=== PATIENT | female | born 1970 | race African-American/Black ===

== ENCOUNTER 2020-03-06 00:28 | Inpatient (IN) ==
[2020-03-06] MEDS ORDERED: SODIUM CHLORIDE 0.9% 1,000 ML IV STA (00:46)
[2020-03-06] MEDS ORDERED: PANTOPRAZOLE 40 MG VIAL IV STA (00:47)
[2020-03-06] MEDS ORDERED: ONDANSETRON 4 MG/2 ML VIAL IV STA (00:47)
[2020-03-06 01:13] LABS: ABG Base Excess -5.2 MMOL/L (-2.5-2.5); ABG HCO3 20.1 MMOL/L (20-26); ABG Oxygen Saturation 97.5 % (95-100); ABG PCO2 32.1 MM HG (35-48); ABG PH 7.381 (7.35-7.45); ABG PO2 95.3 MM HG (80-95); Allen Test Positive; Pt O2 Delivery Device Room Air
[2020-03-06 01:19] LABS: Alanine Aminotransferase 11 U/L (13-56); Albumin 3.1 G/DL (3.4-5.0); Alkaline Phosphatase 113 U/L (45-117); Aspartate Amino Transferase < 3 U/L (0-37); Blood Urea Nitrogen 44 MG/DL (7-18); Calcium 9.9 MG/DL (8.5-10.1); Estimated Glom Filtration Rate 38 ML/MIN; Osmolality,Calculated 292.6 MOS/KG (273-304); Total Protein 8.8 G/DL (6.4-8.3)
[2020-03-06 01:22] LABS: Glucose 692 MG/DL (74-106)
[2020-03-06] MEDS ORDERED: LEVOFLOXACIN INJ 500 MG in PREMIX 1 EACH IV STA (01:31)
[2020-03-06] MEDS ORDERED: ONDANSETRON 4 MG/2 ML VIAL IV PRN (02:08)
[2020-03-06] MEDS ORDERED: MAGNESIUM SULF RIDER 4 GM in PREMIX 1 EACH IV PRN (02:08)
[2020-03-06] MEDS ORDERED: DEXTROSE 50% 25 GM/50 ML SYRINGE IV PRN ×2 (02:08)
[2020-03-06] MEDS ORDERED: INSULIN REGULAR 100 UNIT/ML IV ONE (02:08)
[2020-03-06] MEDS ORDERED: SODIUM CHLORIDE 0.9% 1,000 ML IV ONE (02:08)
[2020-03-06] MEDS ORDERED: SODIUM BICARB INJ 100 MEQ in STERILE WATER INJ 400 ML IV PRN (02:08)
[2020-03-06] MEDS ORDERED: SODIUM PHOSPHATE INJ 19.7 MMOL in SODIUM CHLORIDE 0.9% 250 ML IV PRN (02:08)
[2020-03-06] MEDS ORDERED: INSULIN REGULAR DRIP 100 ML IV SCH (02:30)
[2020-03-06 02:46] LABS: Basophils # 0.1 10*3/uL (0.0-0.2); Basophils % 0.6 % (0.0-0.8); Eosinophils % 0.1 % (0.00-10.9); Hematocrit 37.7 VOL% (35.7-47.0); Hemoglobin 13.3 GM/DL (12.0-16.0); Immature Granulocytes % 0.8 %; Immature Granulocytes Absolute 0.08 #; Lymphocytes # 1.7 10*3/uL (1.4-4.0); Lymphocytes % 16.2 % (21.3-54.2); Mean Corpuscular HGB Conc 35.3 GM/DL (32-36); Mean Corpuscular Volume 85.3 FL (87-102); Mean Platelet Volume 13.2 FL (9.6-12.0); Monocytes % 8.5 % (1.7-12.7); Neutrophils % 73.8 % (38.7-73.9); Platelet Count 400 T/CUMM (130-400); Red Blood Count 4.42 MC/CUMM (3.8-5.5); Red Cell Distribution Width 11.7 % (9.3-17.3); White Blood Count 10.5 T/CUMM (4-12)
[2020-03-06 04:03] LABS: Hypochromasia Slight; Microcytosis Slight; Platelet Estimate Adequate
[2020-03-06 04:14] LABS: ABG Base Excess -2.4 MMOL/L (-2.5-2.5); ABG HCO3 22.4 MMOL/L (20-26); ABG Oxygen Saturation 98.2 % (95-100); ABG PCO2 34.3 MM HG (35-48); ABG PH 7.407 (7.35-7.45); ABG TCO2 19.3 MMOL/L (23-27); Allen Test Positive; Pt O2 Delivery Device Room Air
[2020-03-06] MEDS ORDERED: METHOCARBAMOL 1,000 MG/10 ML VIAL IV STA (04:19)
[2020-03-06 04:20] LABS: Calcium 8.5 MG/DL (8.5-10.1); Osmolality,Calculated 288.2 MOS/KG (273-304)
[2020-03-06 04:31] LABS: Risk Ratio 4.29; Thyroid Stimulating Hormone 1.68 uIU/ml (0.358-3.74); VLDL CHOLESTEROL 51.2 MG/DL
[2020-03-06] MEDS: SODIUM CHLORIDE 0.9% 1,000 ML IV SCH ×6 (04:32→23:34)
[2020-03-06] MEDS ORDERED: MAGNESIUM SULF RIDER 50 ML IV ONE (04:38)
[2020-03-06] MEDS: MAGNESIUM SULF RIDER 2 GM in PREMIX 1 EACH IV PRN (04:41)
[2020-03-06] MEDS: POTASSIUM CHLORIDE RIDER 10 MEQ in PREMIX 1 EACH IV PRN ×2 (04:41→05:45)
[2020-03-06] MEDS ORDERED: SODIUM CHLORIDE 0.9% 1,000 ML IV SCH (07:09)
[2020-03-06] MEDS ORDERED: PANTOPRAZOLE 40 MG VIAL IV SCH (09:00)
[2020-03-06] MEDS ORDERED: GLUCAGON 1 MG VIAL IM PRN ×2 (09:42→09:44)
[2020-03-06] MEDS ORDERED: DEXTROSE 50% 25 GM/50 ML VIAL IV PRN ×2 (09:42→09:44)
[2020-03-06] MEDS ORDERED: INSULIN GLARGINE 100 UNIT/ML SUBCUT SCH (10:00)
[2020-03-06] MEDS ORDERED: ASPIRIN CHEW 81 MG TABLET PO ONE (10:40)
[2020-03-06] MEDS: ENOXAPARIN 40 MG/0.4 ML SYRINGE SUBCUT SCH (10:48)
[2020-03-06] MEDS: ASPIRIN EC 81 MG TABLET PO SCH (10:48)
[2020-03-06 13:16] LABS: Calcium 8.1 MG/DL (8.5-10.1)
[2020-03-06] MEDS ORDERED: POTASSIUM PHOS/SOD PHOS POWDER 250 MG PACK PO SCH (15:00)
[2020-03-06] MEDS: INSULIN LISPRO 100 UNIT/ML SUBCUT SCH ×3 (15:05→21:21)
[2020-03-06] MEDS: ACETAMINOPHEN 325 MG TABLET PO PRN (15:14)
[2020-03-06] MEDS ORDERED: INSULIN GLARGINE 100 UNIT/ML SUBCUT ONE (16:00)
[2020-03-06] MEDS ORDERED: CYCLOBENZAPRINE 10 MG TABLET PO ONE (17:00)
[2020-03-06 18:45] LABS: Osmolality,Calculated 282.4 MOS/KG (273-304)
[2020-03-06] MEDS ORDERED: SODIUM CHLORIDE 0.45% 1,000 ML IV SCH (19:09)
[2020-03-06] MEDS ORDERED: ORPHENADRINE 60 MG/2 ML VIAL IV ONE (20:30)
[2020-03-06] MEDS: ATORVASTATIN 40 MG TABLET PO SCH (21:21)
[2020-03-06 21:23] LABS: Calcium 8.1 MG/DL (8.5-10.1); Osmolality,Calculated 275.2 MOS/KG (273-304)
[2020-03-06] MEDS ORDERED: KETOROLAC 30 MG/1 ML VIAL IV ONE (23:32)
[2020-03-07 01:42] LABS: Calcium 7.9 MG/DL (8.5-10.1); Osmolality,Calculated 273.1 MOS/KG (273-304)
[2020-03-07 04:23] LABS: Barbiturates Screen,Urine Negative (Negative); Benzodiazepines Screen,Urine Negative (Negative); Cannabinoid Screen,Urine Negative (Negative); Opiate Screen,Urine Negative (Negative); Phencyclidine Screen,Urine Negative (Negative)
[2020-03-07 06:14] LABS: Risk Ratio 3.36; VLDL CHOLESTEROL 39.6 MG/DL
[2020-03-07] MEDS: SODIUM CHLORIDE 0.9% 1,000 ML IV SCH ×2 (06:52→16:12)
[2020-03-07] MEDS ORDERED: POTASSIUM CHLORIDE 20 MEQ TABLET PO ONE (09:00)
[2020-03-07] MEDS: ENOXAPARIN 40 MG/0.4 ML SYRINGE SUBCUT SCH (09:12)
[2020-03-07] MEDS: INSULIN LISPRO 100 UNIT/ML SUBCUT SCH ×4 (09:13→21:58)
[2020-03-07] MEDS: INSULIN GLARGINE 100 UNIT/ML SUBCUT SCH (09:14)
[2020-03-07] MEDS: ASPIRIN EC 81 MG TABLET PO SCH (09:15)
[2020-03-07] MEDS ORDERED: LORazepam 2 MG/1 ML VIAL IV ONE ×2 (09:33→10:00)
[2020-03-07] MEDS: LORazepam 2 MG/1 ML VIAL IV PRN (19:32)
[2020-03-07] MEDS: ATORVASTATIN 40 MG TABLET PO SCH (20:45)
[2020-03-08] MEDS: SODIUM CHLORIDE 0.9% 1,000 ML IV SCH ×4 (00:14→21:07)
[2020-03-08] MEDS: LORazepam 2 MG/1 ML VIAL IV PRN ×3 (00:45→21:04)
[2020-03-08 05:45] LABS: Basophils # 0.1 10*3/uL (0.0-0.2); Basophils % 0.7 % (0.0-0.8); Eosinophils # 0.1 10*3/uL (0.0-0.87); Eosinophils % 0.7 % (0.00-10.9); Hematocrit 26.6 VOL% (35.7-47.0); Immature Granulocytes % 1.4 %; Immature Granulocytes Absolute 0.11 #; Lymphocytes # 2.4 10*3/uL (1.4-4.0); Lymphocytes % 29.5 % (21.3-54.2); Mean Corpuscular HGB Conc 34.2 GM/DL (32-36); Mean Corpuscular Volume 87.8 FL (87-102); Mean Platelet Volume 12.3 FL (9.6-12.0); Monocytes % 8.2 % (1.7-12.7); Neutrophils % 59.5 % (38.7-73.9); Red Cell Distribution Width 11.9 % (9.3-17.3)
[2020-03-08 05:54] LABS: Hemoglobin 9.1 GM/DL (12.0-16.0); Platelet Count 267 T/CUMM (130-400); Red Blood Count 3.03 MC/CUMM (3.8-5.5)
[2020-03-08 06:10] LABS: Calcium 8.1 MG/DL (8.5-10.1); Osmolality,Calculated 283.5 MOS/KG (273-304)
[2020-03-08] MEDS ORDERED: POTASSIUM CHLORIDE 20 MEQ TABLET PO ONE (09:00)
[2020-03-08] MEDS ORDERED: MAGNESIUM OXIDE 400 MG TABLET PO ONE (09:00)
[2020-03-08] MEDS: ENOXAPARIN 40 MG/0.4 ML SYRINGE SUBCUT SCH (09:24)
[2020-03-08] MEDS: ASPIRIN EC 81 MG TABLET PO SCH (09:24)
[2020-03-08] MEDS: INSULIN GLARGINE 100 UNIT/ML SUBCUT SCH (09:25)
[2020-03-08] MEDS: INSULIN LISPRO 100 UNIT/ML SUBCUT SCH ×4 (09:25→21:04)
[2020-03-08] MEDS ORDERED: LORazepam 2 MG/1 ML VIAL ONE (09:54)
[2020-03-08] MEDS: ACETAMINOPHEN 325 MG TABLET PO PRN (10:09)
[2020-03-08] MEDS: ATORVASTATIN 40 MG TABLET PO SCH (21:04)
[2020-03-09] MEDS: ACETAMINOPHEN 325 MG TABLET PO PRN (00:30)
[2020-03-09] MEDS: LORazepam 2 MG/1 ML VIAL IV PRN ×2 (05:15→17:37)
[2020-03-09 06:50] LABS: Calcium 7.9 MG/DL (8.5-10.1); Osmolality,Calculated 279.7 MOS/KG (273-304)
[2020-03-09] MEDS: SODIUM CHLORIDE 0.9% 1,000 ML IV SCH ×3 (06:54→22:52)
[2020-03-09] MEDS: INSULIN LISPRO 100 UNIT/ML SUBCUT SCH ×4 (08:26→21:19)
[2020-03-09] MEDS: INSULIN GLARGINE 100 UNIT/ML SUBCUT SCH (08:26)
[2020-03-09] MEDS: ASPIRIN EC 81 MG TABLET PO SCH (08:27)
[2020-03-09] MEDS: ENOXAPARIN 40 MG/0.4 ML SYRINGE SUBCUT SCH (08:28)
[2020-03-09] MEDS: ATORVASTATIN 40 MG TABLET PO SCH (20:32)
[2020-03-09] MEDS: MAGNESIUM SULF RIDER 2 GM in PREMIX 1 EACH IV PRN (20:33)
[2020-03-10 06:04] LABS: Basophils # 0.1 10*3/uL (0.0-0.2); Basophils % 0.7 % (0.0-0.8); Eosinophils # 0.1 10*3/uL (0.0-0.87); Hematocrit 27.3 VOL% (35.7-47.0); Hemoglobin 9.3 GM/DL (12.0-16.0); Immature Granulocytes % 1.6 %; Immature Granulocytes Absolute 0.11 #; Lymphocytes # 2.4 10*3/uL (1.4-4.0); Lymphocytes % 35.3 % (21.3-54.2); Mean Corpuscular HGB Conc 34.1 GM/DL (32-36); Mean Corpuscular Volume 86.7 FL (87-102); Mean Platelet Volume 12.1 FL (9.6-12.0); Monocytes % 7.9 % (1.7-12.7); NRBC # 0.02 10*3/uL; Neutrophils % 53.5 % (38.7-73.9); Platelet Count 344 T/CUMM (130-400); Red Blood Count 3.15 MC/CUMM (3.8-5.5); Red Cell Distribution Width 11.7 % (9.3-17.3); White Blood Count 6.7 T/CUMM (4-12)
[2020-03-10 06:13] LABS: Calcium 8.3 MG/DL (8.5-10.1); Osmolality,Calculated 282.4 MOS/KG (273-304)
[2020-03-10 06:15] LABS: Alanine Aminotransferase 11 U/L (13-56); Albumin 2.1 G/DL (3.4-5.0); Alkaline Phosphatase 71 U/L (45-117); Aspartate Amino Transferase 11 U/L (0-37); Bilirubin,Direct < 0.100 MG/DL (0.0-0.20); Bilirubin,Indirect 0.8 MG/DL (0.0-1.0); Total Protein 6.1 G/DL (6.4-8.3)
[2020-03-10 07:53] LABS: Band Neutrophils 3 % (0-10); Eosinophils 1 % (0-10); Lymphocytes 38 % (20-55); Platelet Estimate Normal; Segmented Neutrophils 51 % (50-85); Total Cells Counted 100
[2020-03-10 07:54] LABS: Anisocytosis Slight
[2020-03-10] MEDS: ASPIRIN EC 81 MG TABLET PO SCH (08:21)
[2020-03-10] MEDS: ENOXAPARIN 40 MG/0.4 ML SYRINGE SUBCUT SCH (08:21)
[2020-03-10] MEDS: INSULIN GLARGINE 100 UNIT/ML SUBCUT SCH (08:22)
[2020-03-10] MEDS: INSULIN LISPRO 100 UNIT/ML SUBCUT SCH ×4 (08:22→22:21)
[2020-03-10] MEDS: SODIUM CHLORIDE 0.9% 1,000 ML IV SCH ×2 (12:10→15:45)
[2020-03-10] MEDS: ATORVASTATIN 40 MG TABLET PO SCH (22:21)
[2020-03-11] MEDS: SODIUM CHLORIDE 0.9% 1,000 ML IV SCH ×3 (05:49→12:01)
[2020-03-11 06:25] LABS: Basophils # 0.1 10*3/uL (0.0-0.2); Basophils % 0.6 % (0.0-0.8); Eosinophils # 0.1 10*3/uL (0.0-0.87); Eosinophils % 1.1 % (0.00-10.9); Hematocrit 25.8 VOL% (35.7-47.0); Hemoglobin 8.8 GM/DL (12.0-16.0); Immature Granulocytes % 2.2 %; Immature Granulocytes Absolute 0.18 #; Lymphocytes # 3.3 10*3/uL (1.4-4.0); Lymphocytes % 40.7 % (21.3-54.2); Mean Corpuscular HGB Conc 34.1 GM/DL (32-36); Mean Corpuscular Volume 87.5 FL (87-102); Mean Platelet Volume 11.8 FL (9.6-12.0); Monocytes % 10.6 % (1.7-12.7); Neutrophils % 44.8 % (38.7-73.9); Platelet Count 378 T/CUMM (130-400); Red Blood Count 2.95 MC/CUMM (3.8-5.5); Red Cell Distribution Width 11.9 % (9.3-17.3); White Blood Count 8.1 T/CUMM (4-12)
[2020-03-11 06:32] LABS: Calcium 8.1 MG/DL (8.5-10.1); Osmolality,Calculated 278.3 MOS/KG (273-304)
[2020-03-11] MEDS: INSULIN LISPRO 100 UNIT/ML SUBCUT SCH ×2 (07:21→11:58)
[2020-03-11 07:44] LABS: Band Neutrophils 1 % (0-10); Eosinophils 2 % (0-10); Lymphocytes 35 % (20-55); Platelet Estimate Normal; Segmented Neutrophils 48 % (50-85); Smudge Cells Few; Total Cells Counted 100
[2020-03-11 07:45] LABS: Anisocytosis 1+; Macrocytosis Slight; Polychromasia Slight
[2020-03-11] MEDS: INSULIN GLARGINE 100 UNIT/ML SUBCUT SCH (08:50)
[2020-03-11] MEDS: ENOXAPARIN 40 MG/0.4 ML SYRINGE SUBCUT SCH (08:50)
[2020-03-11] MEDS: ASPIRIN EC 81 MG TABLET PO SCH (08:50)
[2020-03-11] MEDS: ACETAMINOPHEN 325 MG TABLET PO PRN (08:51)
[2020-03-11] MEDS ORDERED: MAGNESIUM SULF INJ 4 GM, POTASSIUM CHLORIDE INJ 50 MEQ in SODIUM CHLORIDE 0.9% 500 ML IV ONE (09:00)
[2020-03-11 11:39] VITALS: BP 119/80
== END 2020-03-11 15:35 | disposition home or self-care (01) | DRG 638 ==
LOC: N.ED 00:28 → N.EDINP 01:16 → SUATTDRO 01:16 → N.5E 13:52
PROVIDERS: ADMIT Internal Medicine; ATTEND Internal Medicine